=== PATIENT | female | born 1965 | race Caucasian/White ===

== ENCOUNTER 2018-03-02 12:30 | Emergency (ER) | payer SELFPAY ==
[2018-03-02] MEDS ORDERED: NORMAL SALINE 1000 ML 1,000 ML IV ONE (13:09)
--- NOTE | 2018-03-02 13:10 | ER Document Report ---
ED Medical Screen (RME) - General Chief Complaint: ETOH Abuse Stated Complaint: POSSIBLE ETOH AND DEHYDRATION Time Seen by Provider: 03/02/18 13:08 Mode of Arrival: Wheelchair Information source: Patient TRAVEL OUTSIDE OF THE [place] IN LAST 30 DAYS: No - HPI Patient complains to provider of: etoh abuse Onset: This morning - pt admits to etoh use earlier today -- feels dehydrated and weak Physical Exam - Vital signs Vitals: Temp Pulse Resp BP Pulse Ox 98.6 F 97 20 114/83 95 03/02/18 12:42 03/02/18 12:42 03/02/18 12:42 03/02/18 12:42 03/02/18 12:42 Course - Vital Signs Vital signs: Temp Pulse Resp BP Pulse Ox 98.6 F 97 20 114/83 95 03/02/18 12:42 03/02/18 12:42 03/02/18 12:42 03/02/18 12:42 03/02/18 12:42
[2018-03-02 13:47] LABS: ABSOLUTE BASOPHILS # (AUTO) 0.1 10^3/uL (0.0-0.2); ABSOLUTE EOSINOPHILS # (AUTO) 0.2 10^3/uL (0.0-0.6); ABSOLUTE LYMPHOCYTES (AUTO) 2.9 10^3/uL (0.5-4.7); ABSOLUTE MONOCYTES (AUTO) 0.6 10^3/uL (0.1-1.4); ABSOLUTE NEUT (AUTO) 2.4 10^3/uL (1.7-8.2); BASOPHILS % (AUTO) 1.3 % (0-2); EOSINOPHILS % (AUTO) 3.1 % (0-6); HEMATOCRIT 44.9 % (36.0-47.0); HEMOGLOBIN 15.6 g/dL (12.0-15.5); LYMPHOCYTES % (AUTO) 46.7 % (13-45); MEAN CORPUSCULAR HGB CONC 34.7 g/dL (32.0-36.0); MEAN CORPUSCULAR VOLUME 101 fl (80-97); MONOCYTES % (AUTO) 9.1 % (3-13); PLATELET COUNT 213 10^3/uL (150-450); RED BLOOD COUNT 4.44 10^6/uL (3.72-5.28); RED CELL DISTRIBUTION WIDTH 14.7 % (11.5-14.0); SEGMENTED NEUTROPHILS % (AUTO) 39.8 % (42-78); TOTAL CELLS COUNTED % (AUTO) 100 %; WHITE BLOOD COUNT 6.1 10^3/uL (4.0-10.5)
[2018-03-02 13:56] LABS: APPEARANCE,URINE CLEAR; BILIRUBIN,URINE NEGATIVE (NEGATIVE); COLOR,URINE YELLOW; GLUCOSE, URINE NEGATIVE (NEGATIVE); KETONES,URINE NEGATIVE (NEGATIVE); LEUKOCYTE ESTERASE,URINE NEGATIVE (NEGATIVE); NITRITE,URINE NEGATIVE (NEGATIVE); PROTEIN,URINE NEGATIVE (NEGATIVE); UROBILINOGEN,URINE NEGATIVE mg/dL (<2.0)
[2018-03-02 14:09] LABS: ALANINE AMINOTRANSFERASE 166 U/L (9-52); ALBUMIN 4.4 g/dL (3.5-5.0); ALKALINE PHOSPHATASE 108 U/L (38-126); ANION GAP 16 (5-19); ASPARTATE AMINO TRANSFERASE 179 U/L (14-36); BILIRUBIN,DIRECT 0.3 mg/dL (0.0-0.4); BILIRUBIN,TOTAL 0.5 mg/dL (0.2-1.3); BLOOD UREA NITROGEN 10 mg/dL (7-20); CALCIUM 8.7 mg/dL (8.4-10.2); CARBON DIOXIDE 24 mmol/L (22-30); CHLORIDE 109 mmol/L (98-107); GLUCOSE 107 mg/dL (75-110); POTASSIUM 4.2 mmol/L (3.6-5.0); SODIUM 149.3 mmol/L (137-145); TOTAL PROTEIN 8.6 g/dL (6.3-8.2)
[2018-03-02 14:10] LABS: URINE BARBITURATES SCREEN NEGATIVE; URINE BENZODIAZEPINES SCREEN NEGATIVE; URINE COCAINE SCREEN NEGATIVE; URINE MARIJUANA (THC) SCREEN NEGATIVE; URINE METHADONE SCREEN NEGATIVE; URINE PHENCYCLIDINE SCREEN NEGATIVE
[2018-03-02 14:21] LABS: ALCOHOL 345 mg/dL (NONE DETECTED)
--- NOTE | 2018-03-02 15:05 | ER Document Report ---
ED Substance Abuse / Acc. OD <GENE DE DIOS - Last Filed: 03/03/18 06:44> - General Mode of Arrival: Wheelchair Information source: Patient Cannot obtain history due to: Intoxicated TRAVEL OUTSIDE OF THE [place] IN LAST 30 DAYS: No - HPI Patient complains to provider of: Alcohol abuse Onset: This afternoon Quality of pain: No pain Situational problems related to: Other Associated Symptoms: Nausea/vomiting, Headache. denies: Hurts to breathe, Short of breath, Diarrhea Similar symptoms previously: No Recently seen / treated by doctor: No <LARY PACK - Last Filed: 03/03/18 17:22> - General Chief Complaint: ETOH Abuse Stated Complaint: POSSIBLE ETOH AND DEHYDRATION Time Seen by Provider: 03/02/18 13:08 Notes: Patient presents complaining of feeling weak and dizzy for the past 2 days. Patient states that she has been out in the heat for the past 48 hours. Patient does complain of some headache pain and nausea. Patient denies any pain anywhere. Patient denies any chest pain or shortness of breath. Patient states that she is here visiting from [place] and got into an argument with the of her roommate's son. Patient states that yesterday she stayed in the van and today she was supposed to take a bus to [place] back home. Patient denies any injury. Patient denies any recent illness. Patient does admit to drinking for 24 ounce beers over the past 24 hours. Patient without any suicidal or homicidal ideation. (LARY PACK) - Related Data Allergies/Adverse Reactions: No Known Allergies Allergy (Unverified 03/02/18 16:30) Past Medical History - General Information source: Patient - Social History Smoking Status: Current Every Day Smoker Frequency of alcohol use: Heavy Drug Abuse: None Lives with: Friend Family History: Reviewed & Not Pertinent Patient has suicidal ideation: No Patient has homicidal ideation: No - Past Medical History Cardiac Medical History: Reports: Hx Hypertension Pulmonary Medical History: Reports: Hx Asthma Renal/ Medical History: Denies: Hx Peritoneal Dialysis Past Surgical History: Reports: Hx Section - x2 <LARY PACK - Last Filed: 03/03/18 17:22> Review of Systems - Review of Systems Constitutional: Weakness. denies: Fever EENT: No symptoms reported Cardiovascular: Dizziness. denies: Chest pain Respiratory: No symptoms reported. denies: Cough, Short of breath Gastrointestinal: Nausea. denies: Abdominal pain, Vomiting Genitourinary: No symptoms reported Female Genitourinary: No symptoms reported Musculoskeletal: No symptoms reported Skin: No symptoms reported Hematologic/Lymphatic: No symptoms reported Neurological/Psychological: Weakness, Headaches. denies: Confusion <LARY PACK - Last Filed: 03/03/18 17:22> Physical Exam - General General appearance: Appears well, Alert In distress: None - HEENT Head: Normocephalic, Atraumatic Eyes: Normal Conjunctiva: Normal Pupils: PERRL Ears: Normal External canal: Normal Nasal: Normal Mouth/Lips: Normal Mucous membranes: Normal Pharynx: Normal Neck: Normal, Supple. No: Lymphadenopathy, Meningismus - Respiratory Respiratory status: No respiratory distress Chest status: Nontender Breath sounds: Normal. No: Rales, Rhonchi, Stridor, Wheezing Chest palpation: Normal - Cardiovascular Rhythm: Regular Heart sounds: S1 appreciated, S2 appreciated - Abdominal Inspection: Normal Distension: No distension Bowel sounds: Normal Tenderness: Nontender Organomegaly: No organomegaly - Back Back: Normal, Nontender. No: CVA tenderness - Extremities General upper extremity: Normal inspection, Normal ROM General lower extremity: Normal inspection, Normal ROM - Neurological Neuro grossly intact: Yes Cognition: Normal [place] Com[place] Scale Eye Opening: Spontaneous [place] Com[place] Scale Verbal: Oriented [place] Com[place] Scale Motor: Obeys Commands [place] Coma Scale Total: 15 Speech: Other - slow deliberate speech - Psychological Associated symptoms: Normal affect, Normal mood - Skin Skin Temperature: Warm Skin Moisture: Dry Skin Color: Erythema - sunburn to exposed areas of arms, chest <LARY PACK - Last Filed: 03/03/18 17:22> - Vital signs Vitals: Temp Pulse Resp BP Pulse Ox 98.6 F 97 20 114/83 95 03/02/18 12:42 03/02/18 12:42 03/02/18 12:42 03/02/18 12:42 03/02/18 12:42 Course - Laboratory Result Diagrams: 03/02/18 13:18 03/02/18 13:18 <GENE DE DIOS - Last Filed: 03/03/18 06:44> - Laboratory Result Diagrams: 03/02/18 13:18 03/02/18 13:18 <LARY PACK - Last Filed: 03/03/18 17:22> - Re-evaluation Re-evalutation: 03/03/18 00:30 Patient continues to sleep, respirations equal and unlabored. Nursing staff reports that patient is still with slurred speech when she is awake. Will continue to monitor. 03/03/18 06:45 Nursing staff now reports patient is awake, alert and ambulated to the bathroom with a steady gait. Patient reports she will be leaving via bus, charge nurse made aware, patient will be allowed to stay until 8 AM when the bus comes. ( GENE DE DIOS) 03/02/18 18:29 Patient sleeping, IV fluids continue to infuse. Will await until patient is clinically sober for discharge. 03/03/18 07:45 Pt resting in room. Denies any complaints. States she is feeling much better. Patient states that she plans to wait out front for the public transit and then plans to go to the bus station today. RN states that she will call to find out what the bus schedule is to help patient make travel arrangements. (LARY PACK) - Vital Signs Vital signs: Temp Pulse Resp BP Pulse Ox 98.8 F 98 16 174/101 H 95 03/03/18 07:41 03/03/18 07:41 03/03/18 07:41 03/03/18 07:41 03/03/18 07:41 - Laboratory Laboratory results interpreted by me: 03/02/18 03/02/18 03/02/18 13:18 13:18 13:18 Hgb 15.6 H MCV 101 H MCH 35.0 H RDW 14.7 H Seg Neutrophils % 39.8 L Lymphocytes % 46.7 H Sodium 149.3 H Chloride 109 H AST 179 H ALT 166 H Creatine Kinase 530 H Total Protein 8.6 H Serum Alcohol 345 H* 03/02/18 18:33 Labs- Entire Visit 03/02/18 03/02/18 03/02/18 13:18 13:18 13:18 WBC 6.1 RBC 4.44 Hgb 15.6 H Hct 44.9 MCV 101 H MCH 35.0 H MCHC 34.7 RDW 14.7 H Plt Count 213 Seg Neutrophils % 39.8 L Lymphocytes % 46.7 H Monocytes % 9.1 Eosinophils % 3.1 Basophils % 1.3 Absolute Neutrophils 2.4 Absolute Lymphocytes 2.9 Absolute Monocytes 0.6 Absolute Eosinophils 0.2 Absolute Basophils 0.1 Sodium 149.3 H Potassium 4.2 Chloride 109 H Carbon Dioxide 24 Anion Gap 16 BUN 10 Creatinine 0.58 Est GFR ( Amer) > 60 Est GFR (Non-Af Amer) > 60 Glucose 107 Calcium 8.7 Total Bilirubin 0.5 Direct Bilirubin 0.3 Neonat Total Bilirubin Not Reportable Neonat Direct Bilirubin Not Reportable Neonat Indirect Bili Not Reportable AST 179 H ALT 166 H Alkaline Phosphatase 108 Creatine Kinase Total Protein 8.6 H Albumin 4.4 Urine Color YELLOW Urine Appearance CLEAR Urine pH 5.0 Ur Specific [place] 1.010 Urine Protein NEGATIVE Urine Glucose (UA) NEGATIVE Urine Ketones NEGATIVE Urine Blood NEGATIVE Urine Nitrite NEGATIVE Urine Bilirubin NEGATIVE Urine Urobilinogen NEGATIVE Ur Leukocyte Esterase NEGATIVE Urine WBC (Auto) 1 Urine RBC (Auto) 0 Urine Bacteria (Auto) TRACE Squamous Epi Cells Auto 1 Urine Mucus (Auto) FEW Urine Ascorbic Acid NEGATIVE Urine Opiates Screen Urine Methadone Screen Ur Barbiturates Screen Ur Phencyclidine Scrn Ur Amphetamines Screen U Benzodiazepines Scrn Urine Cocaine Screen U Marijuana (THC) Screen Serum Alcohol 345 H* 03/02/18 03/02/18 13:18 13:18 WBC RBC Hgb Hct MCV MCH MCHC RDW Plt Count Seg Neutrophils % Lymphocytes % Monocytes % Eosinophils % Basophils % Absolute Neutrophils Absolute Lymphocytes Absolute Monocytes Absolute Eosinophils Absolute Basophils Sodium Potassium Chloride Carbon Dioxide Anion Gap BUN Creatinine Est GFR ( Amer) Est GFR (Non-Af Amer) Glucose Calcium Total Bilirubin Direct Bilirubin Neonat Total Bilirubin Neonat Direct Bilirubin Neonat Indirect Bili AST ALT Alkaline Phosphatase Creatine Kinase 530 H Total Protein Albumin Urine Color Urine Appearance Urine pH Ur Specific [place] Urine Protein Urine Glucose (UA) Urine Ketones Urine Blood Urine Nitrite Urine Bilirubin Urine Urobilinogen Ur Leukocyte Esterase Urine WBC (Auto) Urine RBC (Auto) Urine Bacteria (Auto) Squamous Epi Cells Auto Urine Mucus (Auto) Urine Ascorbic Acid Urine Opiates Screen NEGATIVE Urine Methadone Screen NEGATIVE Ur Barbiturates Screen NEGATIVE Ur Phencyclidine Scrn NEGATIVE Ur Amphetamines Screen U Benzodiazepines Scrn NEGATIVE Urine Cocaine Screen NEGATIVE U Marijuana (THC) Screen NEGATIVE Serum Alcohol (RAMONE,KELTSIE) Discharge <GENE DE DIOS - Last Filed: 03/03/18 06:44> <LARY PACK - Last Filed: 03/03/18 17:22> - Discharge Clinical Impression: Alcohol abuse, Liver function test abnormality Condition: Good Disposition: HOME, SELF-CARE Instructions: Acute Alcohol Intoxication ([facility]), Liver Function Abnormality ([facility] ), Nausea or Vomiting, Nonspecific ([facility]) Additional Instructions: Return immediately for any new or worsening symptoms Followup with your primary care provider, call tomorrow to make a followup appointment Avoid drinking alcohol Stay well-hydrated Your liver function tests were abnormal today. Have your primary doctor recheck these tests in 1 week, when you return home. Referrals: [facility] [Provider Group] - Follow up as needed
[2018-03-02 15:34] LABS: CREATINE KINASE 530 U/L (30-135)
[2018-03-02] MEDS ORDERED: NORMAL SALINE 1000 ML 1,000 ML IV PRN (15:54)
[2018-03-02] MEDS ORDERED: KETOROLAC TROMETHAMINE INJ/PF 30 MG/1 ML SDV IV ONE (15:55)
[2018-03-02] MEDS ORDERED: ACETAMINOPHEN 325 MG TABLET PO ONE (15:55)
[2018-03-02] MEDS ORDERED: ONDANSETRON HCL INJ/PF 4 MG/2 ML SDV IV ONE ×3 (16:01→20:30)
--- NOTE | 2018-03-03 00:05 | EKG REPORT ---
SEVERITY:- ABNORMAL ECG - SINUS RHYTHM FIRST DEGREE AV BLOCK : Confirmed by: Samira Busch MD 03-Mar-2018 00:04:53
[2018-03-03 07:50] VITALS: BP 174/101
== END 2018-03-03 07:50 | disposition home or self-care (01) ==
LOC: ER 12:30
DX: F10.10 Alcohol abuse, uncomplicated (principal); R53.1 Weakness; R42 Dizziness and giddiness; R51 Headache; R11.2 Nausea with vomiting, unspecified; I10 Essential (primary) hypertension; J45.909 Unspecified asthma, uncomplicated; L55.0 Sunburn of first degree; F17.200 Nicotine dependence, unspecified, uncomplicated
CPT/HCPCS: 93005; 99284; 96361; 96374; 96375; 36415; 80307 ×2; 82550; 85025; 80053; 81001; 93010; J1885; J2405; J7030